=== PATIENT | female | born 1970 | race African-American/Black ===

== ENCOUNTER 2016-08-25 09:47 | Emergency (ER) | payer OTHER ==
[2016-08-25 10:21] LABS: Bilirubin Negative (Negative); Blood, Urine Large (Negative); Clarity Clear (Clear); Glucose, Urine (Dipstick) 100 mg/dL (Negative); Leukocyte Small (Negative); Nitrite Positive (Negative); Protein, Urine (Dipstick) 30 mg/dL (Neg-Trace); RBC/HPF 21-50 HPF (0-3); pH, Urine 7.5 (5.0-9.0)
[2016-08-25 10:22] LABS: Bacteria/HPF 1+ HPF (None Seen)
[2016-08-25] MEDS ORDERED: Ketorolac Tromethamine 60 MG/2 ML VIAL ONE (10:33)
[2016-08-25] MEDS ORDERED: HYDROcodone/Acetaminophen 5/325 mg Tablet ONE (10:33)
[2016-08-25] MEDS ORDERED: cefTRIAXone\\ROCEPHIN 1 GM VIAL ONE (10:44)
[2016-08-25] MEDS ORDERED: Lidocaine 1% 20 ML MDV ONE (10:44)
== END 2016-08-25 11:10 | disposition home or self-care (01) ==
LOC: MADERS 09:47
DX: N30.90 Cystitis, unspecified without hematuria (principal); I10 Essential (primary) hypertension
CPT/HCPCS: 81003; 81015; 87077; 87086; 87186; 96372; J0696; J1885; J2001

== ENCOUNTER 2019-02-20 07:35 | Emergency (ER) | payer OTHER, SELFPAY ==
[2019-02-20 08:00] LABS: Bilirubin Negative (Negative); Blood, Urine Moderate (Negative); Clarity Hazy (Clear); Glucose, Urine (Dipstick) 100 mg/dL (Negative); Leukocyte Small (Negative); Nitrite Positive (Negative); Protein, Urine (Dipstick) Negative (Neg-Trace); Urobilinogen 0.2 mg/dL (Less than 2)
[2019-02-20 08:03] LABS: Bacteria/HPF Rare-Few HPF (None Seen); RBC/HPF 0-3 HPF (0-3); WBC/HPF 21-50 HPF (0-3)
[2019-02-20 08:04] LABS: Yeast-Budding Rare HPF (None Seen)
== END 2019-02-20 08:25 | disposition home or self-care (01) ==
LOC: MADERS 07:35
DX: N30.00 Acute cystitis without hematuria (principal); I10 Essential (primary) hypertension; Z79.899 Other long term (current) drug therapy
CPT/HCPCS: 81003; 81015; 99283